=== PATIENT | female | born 1960 | race Caucasian/White ===

== ENCOUNTER → 2021-08-04 | Day surgery (SDC) | payer OTHER ==
[~2021-08-04] MED LIST: AMITRIPTYLINE H25 MG PO; FARXIGA5 MG PO; FLUOXETINE HCL40 MG PO; LIPITOR TAB 2020 MG PO; OMEPRAZOLE40 MG PO; VITAMIN D PO
== END | disposition home or self-care (01) ==
LOC: OR 06:31
DX: K22.70 Barrett's esophagus without dysplasia (principal); K44.9 Diaphragmatic hernia without obstruction or gangrene; K21.00 Gastro-esophageal reflux disease with esophagitis, without bleeding; K22.4 Dyskinesia of esophagus; E11.9 Type 2 diabetes mellitus without complications; E78.00 Pure hypercholesterolemia, unspecified; E66.3 Overweight; Z68.26 Body mass index [BMI] 26.0-26.9, adult; Z79.899 Other long term (current) drug therapy; Z98.51 Tubal ligation status; Z82.49 Family history of ischemic heart disease and other diseases of the circulatory system; Z80.0 Family history of malignant neoplasm of digestive organs
CPT/HCPCS: J2704; J7040